=== PATIENT | male | born 1995 | race Caucasian/White ===

== ENCOUNTER 2023-07-08 20:01 | Inpatient (IN) | payer OTHER, SELFPAY ==
[2023-07-08 15:24] VITALS: BP 136/80
--- NOTE | 2023-07-08 15:49 | ED.GENMED ---
History of Present Illness
<Osmany Casanova, DO - Last Filed: 07/09/23 06:00>
General
Chief Complaint: Abdominal Symptoms
Source: patient
Exam Limitations: none
Time Seen by Provider: 07/08/23 15:43
Travel History
Have you had any contact with someone who has COVID-19?: No
Do you have any symptoms of coronavirus? Fever > 100 degrees, chills, cough, shortness of breath, sore throat, loss of taste or smell, muscle aches, or headache?: No
History of Present Illness
History of Present Illness:
See MDM
Past History
<Osmany Casanova, DO - Last Filed: 07/09/23 06:00>
Past History
ED Past Medical History: None
ED Past Surgical History: Other (Intra-abdominal abscess drainage)
Phy Exam
<Osmany Casanova, DO - Last Filed: 07/09/23 06:00>
Physical Exam
Physical Exam:
See MDM
Course
<Osmany Casanova, DO - Last Filed: 07/09/23 06:00>
Orders/Labs/Results
Orders:
Orders
07/08/23 15:48
Iohexol [Omnipaque] See Protocol PO NOW STA
Ketorolac [Toradol] 30 mg IV NOW STA
07/08/23 15:49
CT Abd/pel W Iv And Oral Contr Urgent
Comment: hx RLQ abscess drained 6 weeks ago
Reason For Exam: RLQ pain
07/08/23 16:09
Complete Blood Count/With Diff Urgent
Comprehensive Metabolic Panel Urgent
07/08/23 19:51
Admit/Transfer Patient As Directed
Co-Sign Provider:
Level of Care: Inpatient admission
Assign to:: Medical/Surgical
Physician / Group: john
Diagnosis: abscess
Reason for Hospitalization: abscess
Expected length of stay greater than two midnights?: Yes
ELOS- Estimated Length of Stay in days: 3
I certify the patient meets the requirements for IP care: Yes
07/08/23 19:52
Code Status As Directed
Resuscitation Status: Full Code
07/08/23 21:01
Acetaminophen [Tylenol] 650 mg PO Q4HPRN PRN
07/08/23 21:01
Activity As Directed
Activity Level: As Tolerated
Vital Signs As Directed
Frequency: Per unit guidelines
DX Deep Vein Thrombosis Video Routine
07/09/23 06:00
Basic Metabolic Panel IN AM
Complete Blood Count/No Diff IN AM
Ampicillin/Sulbactam 3 G [Unasyn] 3 gm 0.9% Sodium Chloride 100 ml [Nss] 100 ml IV Q6
07/10/23 06:00
Basic Metabolic Panel IN AM
Complete Blood Count/No Diff IN AM
07/11/23 06:00
Basic Metabolic Panel IN AM
Complete Blood Count/No Diff IN AM
07/12/23 06:00
Basic Metabolic Panel IN AM
Complete Blood Count/No Diff IN AM
07/13/23 06:00
Basic Metabolic Panel IN AM
Complete Blood Count/No Diff IN AM
Abnormal Lab Results
07/08/23
16:09
WBC 17.2 H 10^3/uL
(4.8-10.8)
Hgb 12.0 L g/dL
(13.0-18.0)
Hct 37.5 L %
(39.0-52.0)
MCV 78.8 L fL
(80.0-94.0)
MCH 25.2 L pg
(27.0-31.0)
MCHC 32.0 L g/dL
(33.0-37.0)
Abs Immat Gran (auto) 0.1 H 10^3/uL
(0-0.05)
Absolute Neuts (auto) 15.2 H 10^3/uL
(1.4-6.5)
Absolute Lymphs (auto) 0.8 L 10^3/uL
(1.2-3.4)
Absolute Monos (auto) 1.1 H 10^3/uL
(0.1-0.6)
Neutrophils % 88.1 H %
(42.2-75.2)
Lymphocytes % 4.4 L %
(20.5-51.1)
BUN 8 L mg/dl
(9-20)
Glucose 104 H mg/dl
(70-99)
07/08/23 16:09
07/08/23 16:09
Vital Signs
Initial and Last Documented VS:
Initial Vital Signs
Temp Pulse Resp BP Pulse Ox
98.3 F 108 16 136/80 97
07/08/23 15:24 07/08/23 15:24 07/08/23 15:24 07/08/23 15:24 07/08/23 15:24
Last Documented Vital Signs
Temp Pulse Resp BP Pulse Ox
98.8 F 94 12 119/65 98
07/08/23 23:00 07/08/23 23:00 07/08/23 23:00 07/08/23 23:00 07/08/23 23:00
<Kevin Merino MD - Last Filed: 07/08/23 19:49>
Orders/Labs/Results
Orders:
Orders
07/08/23 15:48
Iohexol [Omnipaque] See Protocol PO NOW STA
Ketorolac [Toradol] 30 mg IV NOW STA
07/08/23 15:49
CT Abd/pel W Iv And Oral Contr Urgent
Comment: hx RLQ abscess drained 6 weeks ago
Reason For Exam: RLQ pain
07/08/23 16:09
Complete Blood Count/With Diff Urgent
Comprehensive Metabolic Panel Urgent
07/08/23 19:51
Admit/Transfer Patient As Directed
Co-Sign Provider:
Level of Care: Inpatient admission
Assign to:: Medical/Surgical
Physician / Group: john
Diagnosis: abscess
Reason for Hospitalization: abscess
Expected length of stay greater than two midnights?: Yes
ELOS- Estimated Length of Stay in days: 3
I certify the patient meets the requirements for IP care: Yes
07/08/23 19:52
Code Status As Directed
Resuscitation Status: Full Code
07/08/23 21:01
Acetaminophen [Tylenol] 650 mg PO Q4HPRN PRN
07/08/23 21:01
Activity As Directed
Activity Level: As Tolerated
Vital Signs As Directed
Frequency: Per unit guidelines
DX Deep Vein Thrombosis Video Routine
07/09/23 06:00
Basic Metabolic Panel IN AM
Complete Blood Count/No Diff IN AM
Ampicillin/Sulbactam 3 G [Unasyn] 3 gm 0.9% Sodium Chloride 100 ml [Nss] 100 ml IV Q6
07/10/23 06:00
Basic Metabolic Panel IN AM
Complete Blood Count/No Diff IN AM
07/11/23 06:00
Basic Metabolic Panel IN AM
Complete Blood Count/No Diff IN AM
07/12/23 06:00
Basic Metabolic Panel IN AM
Complete Blood Count/No Diff IN AM
07/13/23 06:00
Basic Metabolic Panel IN AM
Complete Blood Count/No Diff IN AM
Abnormal Lab Results
07/08/23
16:09
WBC 17.2 H 10^3/uL
(4.8-10.8)
Hgb 12.0 L g/dL
(13.0-18.0)
Hct 37.5 L %
(39.0-52.0)
MCV 78.8 L fL
(80.0-94.0)
MCH 25.2 L pg
(27.0-31.0)
MCHC 32.0 L g/dL
(33.0-37.0)
Abs Immat Gran (auto) 0.1 H 10^3/uL
(0-0.05)
Absolute Neuts (auto) 15.2 H 10^3/uL
(1.4-6.5)
Absolute Lymphs (auto) 0.8 L 10^3/uL
(1.2-3.4)
Absolute Monos (auto) 1.1 H 10^3/uL
(0.1-0.6)
Neutrophils % 88.1 H %
(42.2-75.2)
Lymphocytes % 4.4 L %
(20.5-51.1)
BUN 8 L mg/dl
(9-20)
Glucose 104 H mg/dl
(70-99)
07/08/23 16:09
07/08/23 16:09
Vital Signs
Initial and Last Documented VS:
Initial Vital Signs
Temp Pulse Resp BP Pulse Ox
98.3 F 108 16 136/80 97
07/08/23 15:24 07/08/23 15:24 07/08/23 15:24 07/08/23 15:24 07/08/23 15:24
Last Documented Vital Signs
Temp Pulse Resp BP Pulse Ox
98.8 F 94 12 119/65 98
07/08/23 23:00 07/08/23 23:00 07/08/23 23:00 07/08/23 23:00 07/08/23 23:00
<Osmany Casanova, DO - Last Filed: 07/09/23 06:00>
MDM/Problems Addressed
Differential Diagnosis Includes:
HPI and MDM Narrative:
27-year-old male presenting for evaluation of right lower quadrant pain. Symptoms have persisted over the past week. Patient is worried this is a reoccurrence of an intra-abdominal abscess. He states he had an issue about 6 weeks ago at an
outside hospital that required drainage of an abscess. Patient states he was told the abscess was between his terminal ileum and his appendix they were unsure if this could be an undiagnosed Crohn's issue or possibly appendicitis. The appendix was
not removed because of the large amount of inflammation. Patient has been unable to see a internal combustion engineer expeditiously for colonoscopy
Given his recurrent symptoms and his prior history, will obtain CT to rule out acute appendicitis versus abscess versus perforation
Physical exam
General: Well appearing and non-toxic
HEENT: protecting airway
Neck: appears supple
CV: No evidence of cyanosis
Resp: No accessory muscle use
Abd: Non-distended. Point tenderness to right lower quadrant
Extremities: No deformities
Neuro: alert
Psych: Normal affect
Skin: Intact
Problems Addressed including Acute and Chronic Conditions affecting care:
1. Abdominal pain
Acuity: acute
Prognosis: stable
Details: Will obtain CT to rule out appendicitis versus perforation versus abscess
Differential Diagnosis (but not limited to): Acute appendicitis, intra-abdominal abscess, colitis
Testing considered: Urinalysis
Drug therapy (if applicable): OTC meds, please see d/c instruction regarding Rx drugs
Amount and/or Complexity of Data Reviewed
Clinical info obtained from: Patient
External data reviewed: N/A
Labs I independently reviewed (but not limited to): Leukocytosis
Radiology: The CT scan was personally and independently reviewed. In addition, official CT report reviewed.
Pulse Ox: not hypoxic
EKG independently reviewed: N/A
Highway Painter: N/A
Critical Care: N/A
Risk of Complication:
Social Determinants of health: Good social support
Discussed with other providers: Hospitalist
Escalation of Care includes Admit/Obs: Given the CT findings, will start antibiotics and admit
Occasional wrong word or 'sound a like' substitutions may have occurred due to the inherent limitations of voice recognition software. Read the chart carefully and recognize, using context, where substitutions have occurred.
<Osmany Casanova DO - Last Filed: 07/09/23 06:00>
*Critical Care Note
Total Time (30-74mins, 75-104mins- exclusive of procedures): Not Applicable
<Kevin Merino MD - Last Filed: 07/08/23 19:49>
Update Note
Update Note:
Marked inflammatory changes right lower quadrant. Admit to medicine. Discussed with surgery. Will start antibiotics. Clear liquid diet for now
ED Attending Note
<Osmany Casanova DO - Last Filed: 07/09/23 06:00>
-
Portions of this chart may have been created with voice recognition software.� Occasional wrong word or��sound alike� substitutions may have occurred due to the inherent limitations of voice recognition software.
Discharge Plan
Departure
Patient Disposition: Admit
Date of Disposition: 07/08/23
Time of Disposition: 19:48
Presentation/result/management discussed w/ accepting MD/DO: Hospitalist
Discharge Problem:
Colitis
Interventions
Interventions:
*Risk Screen - Suicide Last Done: 07/08/23 21:00
*General Assessment Last Done: 07/08/23 21:00
*Neglect/Abuse Screening Last Done: 07/08/23 21:00
ED- Fall Risk Assessment Last Done: 07/08/23 21:00
*ED COVID-19 Vaccine History Last Done: 07/08/23 15:24
*Nursing Disposition Last Done: 07/08/23 21:00
AB-Fugczz-Ienfjesknh Assessment Last Done: 07/08/23 16:15
Discharge Date and Time
Discharge Date/Time: 07/08/23 21:00
[2023-07-08] MEDS: TORADOL 30 MG IV (16:04)
[2023-07-08] MEDS: OMNIPAQUE 50 ML PO (16:06)
[2023-07-08 16:18] LABS: % Basophils 0.2 % (0-2); % Eosinophils 0.4 % (0-6); % Immature Granulocytes 0.4 % (0-0.5); % Lymphocytes 4.4 % (20.5-51.1); % Monocytes 6.5 % (1.7-9.3); % Neutrophils 88.1 % (42.2-75.2); Absolute Eosinophils 0.1 10^3/uL (0-0.7); Absolute Immature Granulocytes 0.1 10^3/uL (0-0.05); Absolute Lymphocytes 0.8 10^3/uL (1.2-3.4); Absolute Monocytes 1.1 10^3/uL (0.1-0.6); Absolute Neutrophils 15.2 10^3/uL (1.4-6.5); Hematocrit 37.5 % (39.0-52.0); Mean Corpuscular Hgb 25.2 pg (27.0-31.0); Mean Corpuscular Volume 78.8 fL (80.0-94.0); Mean Platelet Volume 10.3 fL (7.4-10.4); Nucleated Red Blood Cells % 0 % (-); Platelet Count 352 10^3/uL (130-400); Red Blood Cell Count 4.76 10^6/uL (4.70-6.10); Red Cell Dist. Width 13.2 % (11.5-14.5); White Blood Cell Count 17.2 10^3/uL (4.8-10.8)
[2023-07-08 16:30] LABS: ALT (SGPT) 18 U/L (0-50); AST (SGOT) 20 U/L (17-59); Albumin 4.1 g/dl (3.5-5.0); Alkaline Phosphatase 87 U/L (38-126); Blood Urea Nitrogen 8 mg/dl (9-20); Calcium 9.7 mg/dl (8.4-10.2); Carbon Dioxide 26 mmol/L (22-30); Chloride 100 mmol/L (98-107); Glucose 104 mg/dl (70-99); Potassium 4.1 mmol/L (3.5-5.1); Sodium 136 mmol/L (135-145); Total Protein 7.5 g/dl (6.3-8.2); eGFR > 60.00
[2023-07-08 17:51] VITALS: BP 120/67
[2023-07-08 19:40] VITALS: BP 125/64
--- NOTE | 2023-07-08 20:19 | HPS.HSE ---
Family Physician
-
Family Physician: Jamal Pickens,DO
Chief Complaint
-
Abd pain
History of Present Illness
27-year-old man comes in with right lower quadrant pain. Symptoms have persisted over the past week. He is worried this is a reoccurrence of an intra-abdominal abscess. 6 weeks ago at an outside hospital he presented with an abscess that required
drainage. He was told the abscess was between his terminal ileum and his appendix. Providers at that hospital were unsure if this could be an undiagnosed Crohn's issue or possibly appendicitis. The appendix was not removed. Patient has been
unable to see a conference service coordinator since then for colonoscopy. No family history of inflammatory bowel disease. A CT was ordered to rule out acute appendicitis versus abscess versus perforation. CT showed:
Focal marked edematous/inflammatory/infectious stranding in the right lower quadrant with accompanying marked thickening of the wall of the cecum and terminal ileum (appendix otherwise not discretely identified), without accompanying well-formed
abnormal focal fluid collection, intestinal obstruction or free air. Several accompanying subcentimeter right lower quadrant mesenteric lymph nodes.
Medical History
Past Medical History
Past Medical History: Reports None
Past Surgical History: Reports None
Social History
Tobacco: Vaping
Alcohol: None
Drug: None
Employment: Employed
Family History
Family History: Not pertinent
Allergies / Home Medications
Allergies reflects when Allergies were last updated in [employer].
Home Medications with original date entered in [employer]
Allergy/Medication List:
Allergies
Allergy/AdvReac Type Severity Reaction Status Date / Time
No Known Allergies Allergy Verified 07/08/23 19:41
No home meds.
Review of Systems
-
History Source: Patient
A 12 point ROS was completed and negative except as noted: Yes
Constitutional: Reports No Symptoms
Physical Exam
Vital Signs
Vital Signs
Temp Pulse Resp BP Pulse Ox
98.4 F 99 16 125/64 99
07/08/23 19:40 07/08/23 19:40 07/08/23 15:24 07/08/23 19:40 07/08/23 19:40
Physical Exam
General: Well Developed, Well Nourished, No Apparent Distress, Comfortable and Conversant
HEENT: NormoCephalic and Moist mucous membranes
Respiratory: Clear
Cardiac: S1/S2 and Regular Rhythm
GI: Soft and Tender (mildly tender RLQ, ohterwise not tender.)
Musculoskeletal: No Clubbing, No Cyanosis and No Edema
Skin: Warm and Dry; No Rash or Jaundice
Neuro: Awake, Alert, Oriented and AO x 3
Psych: Calm
Laboratory Results
-
07/08/23 16:09
07/08/23 16:09
Laboratory Results
Total Bilirubin 1.0 mg/dl (0.2-1.3) 07/08/23 16:09
AST 20 U/L (17-59) 07/08/23 16:09
ALT 18 U/L (0-50) 07/08/23 16:09
Alkaline Phosphatase 87 U/L (38-126) 07/08/23 16:09
Data Reviewed
-
Lab Data: Labs Reviewed by me
Impression/Plan
-
IMPRESSION:
27 man with inflammation in intestine, possible inflammatory bowel disease. WBC 17.2
PLAN:
1. Inflamed thickening of the wall of the cecum and terminal ileum. ER Discussed case with surgery. No indication for surgery tonight.
Clear liquids
IV antibiotics
GI consult to discuss next steps
Full code
VCD for DVTp
[2023-07-08 21:05] VITALS: BP 130/65; BMI 28.0
[2023-07-08] MEDS: UNASYN IV (21:55)
[2023-07-08 23:00] VITALS: BP 119/65
[2023-07-09] MEDS: UNASYN IV ×4 (05:56→23:47)
[2023-07-09 06:55] LABS: Hematocrit 35.5 % (39.0-52.0); Hemoglobin 11.6 g/dL (13.0-18.0); Mean Corp Hgb Conc. 32.7 g/dL (33.0-37.0); Mean Corpuscular Hgb 25.3 pg (27.0-31.0); Mean Corpuscular Volume 77.5 fL (80.0-94.0); Mean Platelet Volume 10.3 fL (7.4-10.4); Platelet Count 330 10^3/uL (130-400); Red Blood Cell Count 4.58 10^6/uL (4.70-6.10); Red Cell Dist. Width 13.5 % (11.5-14.5); White Blood Cell Count 11.7 10^3/uL (4.8-10.8)
[2023-07-09 07:00] VITALS: BP 115/63
[2023-07-09 07:16] LABS: Blood Urea Nitrogen 8 mg/dl (9-20); Calcium 9.6 mg/dl (8.4-10.2); Carbon Dioxide 25 mmol/L (22-30); Chloride 100 mmol/L (98-107); Estimated Creatinine Clearance 111 ml/min; Glucose 84 mg/dl (70-99); Potassium 4.4 mmol/L (3.5-5.1); Sodium 137 mmol/L (135-145); eGFR > 60.00
--- NOTE | 2023-07-09 09:07 | W.PN.HOSP.TC ---
Today's Communication/Plan
-
Colorectal surgery consult
Assessment / Plan
Assessment / Plan
Gen-AAOx3, NAD
HEENT-NC, AT, anicteric, clear oral mm
Neck-supple
CV-reg, no M, +S1/S2
Lungs-clear B/L
Abd-soft, nondistended, mild right lower quadrant tenderness
Ext-no edema
Musculoskeletal-no cyanosis, clubbing
Skin-warm and dry
Neuro-grossly non-focal
Psych-calm, cooperative
Sepsis due to right lower quadrant abscess -rule out perforation. CT abdomen and pelvis noted. Continue IV antibiotics. Consult colorectal surgery.
Recently admitted to [facility] 6 weeks ago (May 2023) for treatment of this abscess. Transiently had a drain in place but was not discharged with a drain. Completed 10 days of Augmentin after discharge. Pain in the right lower
quadrant recurred about a week ago. Has never had a colonoscopy. No family history of bowel disease.
He estimates he is lost about 15 pounds since May.
Afebrile here, leukocytosis improving.
Full code
Anticipated Discharge: > 48 hours
Subjective/Interval History
-
Date of Service: July 09, 2023
Patient seen and examined. Less pain today. No complaints.
Objective Data
-
Labs:
Laboratory Results
07/09/23
05:31
WBC 11.7 H
Hgb 11.6 L
Hct 35.5 L
Plt Count 330
Sodium 137
Potassium 4.4
Chloride 100
Carbon Dioxide 25
BUN 8 L
Creatinine 1.0
Glucose 84
Calcium 9.6
Vital Signs:
Vital Signs
Temp Pulse Resp BP Pulse Ox
97.6 F 94 18 115/63 97
07/09/23 07:00 07/09/23 07:00 07/09/23 07:00 07/09/23 07:00 07/09/23 07:00
I&O
07/08/23 07/09/23 07/10/23
06:59 06:59 06:59
Intake Total 360 / 360
Balance 360 / 360
Review of Systems
-
History Source: Patient
All other systems: Reviewed and negative
[2023-07-09 12:39] LABS: Reticulocyte Count 1.2 % (0.4-2.8)
[2023-07-09 12:58] LABS: Iron < 20 ug/dl (49-181)
[2023-07-09 13:05] LABS: Total Iron Binding Capacity 239 ug/dl (261-462)
--- NOTE | 2023-07-09 13:28 | CON.CRS ---
Consultation
-
Date/Time Consultation Requested: 07/09/2023. 8:05am
Date/Time Consultation Performed: 07/09/2023, 11:30
Requesting Provider: Agustín Perez MD
Performing Provider: Jonathan Connor MD
Reason for Consultation: inflammation/thickening of cecum and TI
Medical History
-
Chief Complaint: abdominal pain
History of Present Illness:
27-year-old male with a past medical history of vaping presents to the emergency department due to abdominal pain. The patient was at [facility] about 6 weeks ago with severe abdominal pain. CT abdomen and pelvis showed that he had an abscess
near his cecum. A drain was in place for 2 days and subsequently removed due to low output. At the time he was told this could be either his appendix or Crohn's disease. He was seen in consult by general surgeon who told him there was no need for
an immediate operation. The plan was for him to follow-up in the office with GI and get a colonoscopy. If it was Crohn's disease then he would be treated by GI but if it was negative then the general surgeon would perform an appendectomy. He was
discharged from [facility] on Augmentin.
The patient states that his pain came back about 1 week ago. It then elevated throughout the week. It got to the point where last night he felt like it was as painful as when he had intial symptoms six weeks ago. Currently he denies nausea or
vomiting. He has some diarrhea. He is urinating without difficulty. His pain has improved since antibiotics have started. His white count on admission was 17.2 and down to 11.7 today. He was started on IV Unasyn in the ER. CT of the abdomen
and pelvis shows focal marked edematous/inflammatory/infectious stranding in the right lower quadrant with accompanying marked thickening of the wall of the cecum and terminal ileum (appendix otherwise not discretely identified), without
accompanying well-formed abnormal focal fluid collection, intestinal obstruction or free air. Several accompanying subcentimeter right lower quadrant mesenteric lymph nodes. He has never had a colonoscopy. He denies a family history of colorectal
cancer or inflammatory bowel disease. We have been consulted for further surgical input.
Past Medical History
Past Medical History: None
Past Surgical History: None
Social History
Tobacco: Vaping
Alcohol: Occasional
Drug: None
Family History
Family History: Reviewed & Not Pertinent
Allergies / Home Medications
Allergy/AdvReac Type Severity Reaction Status Date / Time
No Known Allergies Allergy Verified 07/08/23 19:41
�Medication �Instructions �Recorded �Confirmed �Type
Probiotic Supplement 07/08/23 History
Review of Systems
-
History Source: Patient
Abdomen/GI: Abdominal Pain
A 10 point review of systems was completed, and was negative except as per HPI.
Physical Exam
Vital Signs
Temp 97.6 F 07/09/23 07:00
Pulse 94 07/09/23 07:00
Resp Rate 18 07/09/23 07:00
Blood pressure 115/63 07/09/23 07:00
SaO2 97 07/09/23 07:00
07/08/23 07/09/23 07/10/23
06:59 06:59 06:59
Actual Weight 85.82 kg
Body Mass Index (BMI) 28.0
Lab Results / Allergies
07/09/23 05:31
07/09/23 05:31
WBC 11.7 10^3/uL (4.8-10.8) H 07/09/23 05:31
Hgb 11.6 g/dL (13.0-18.0) L 07/09/23 05:31
Hct 35.5 % (39.0-52.0) L 07/09/23 05:31
Plt Count 330 10^3/uL (130-400) 07/09/23 05:31
Abs Immat Gran (auto) 0.1 10^3/uL (0-0.05) H 07/08/23 16:09
Neutrophils % 88.1 % (42.2-75.2) H 07/08/23 16:09
Allergy/AdvReac Type Severity Reaction Status Date / Time
No Known Allergies Allergy Verified 07/08/23 19:41
Physical Exam
General: Well Developed, Well Nourished and No Apparent Distress
GI: Soft, Non Distended and Tender (RLQ- mild)
Skin: Warm and Dry
Neuro: AO x 3
Psych: Calm
Assessment / Plan
-
Assessment: 27-year-old male with a past medical history of vaping and recent admission at [facility] 6 weeks ago for an abscess near his cecum status post drain, presents to [facility] with worsening abdominal pain and found to have
edematous/inflammatory/infectious stranding in the right lower quadrant with accompanying marked thickening of the wall of the cecal and terminal ileum. Crohns (more likely) vs appendicitis.
WBC 11.7. Vitals normal.
Plan:
No plans for emergent surgery at this time. May require surgical intervention in the future. Recommend continuing IV Unasyn. Continue clear liquid diet and will add Ensure. Recommend GI consult given ? Crohn's.
[2023-07-09 14:42] LABS: Folate 4.8 ng/ml (2.76-20)
[2023-07-09 15:00] VITALS: BP 115/76
[2023-07-09] MEDS: LOVENOX 40 MG SC (18:47)
[2023-07-09] MEDS: TORADOL 15 MG IV (18:54)
[2023-07-09 23:00] VITALS: BP 110/63
[2023-07-09] MEDS: FLUSH (NSS) 2 FLUSH IV (23:48)
[2023-07-09] MEDS: TYLENOL 1000 MG PO (23:52)
[2023-07-10 05:42] LABS: Hemoglobin 11.1 g/dL (13.0-18.0); Mean Corp Hgb Conc. 32.6 g/dL (33.0-37.0); Mean Corpuscular Hgb 25.2 pg (27.0-31.0); Mean Corpuscular Volume 77.1 fL (80.0-94.0); Mean Platelet Volume 10.2 fL (7.4-10.4); Platelet Count 307 10^3/uL (130-400); Red Blood Cell Count 4.41 10^6/uL (4.70-6.10); Red Cell Dist. Width 13.2 % (11.5-14.5); White Blood Cell Count 11.5 10^3/uL (4.8-10.8)
[2023-07-10] MEDS: UNASYN IV ×4 (05:55→23:19)
[2023-07-10] MEDS: TYLENOL 1000 MG PO (05:55)
[2023-07-10] MEDS: FLUSH (NSS) 2 FLUSH IV (05:56)
[2023-07-10 06:28] LABS: Blood Urea Nitrogen 5 mg/dl (9-20); Calcium 9.7 mg/dl (8.4-10.2); Carbon Dioxide 28 mmol/L (22-30); Chloride 101 mmol/L (98-107); Estimated Creatinine Clearance > 125 ml/min; Glucose 98 mg/dl (70-99); Potassium 4.3 mmol/L (3.5-5.1); Sodium 140 mmol/L (135-145); eGFR > 60.00
[2023-07-10 07:00] VITALS: BP 113/68
[2023-07-10 08:12] LABS: Prealbumin (Transthyretin) 8.4 mg/dl (17.6-36.0)
--- NOTE | 2023-07-10 09:46 | CON.GI ---
Addendum entered and electronically signed by Bee Kunz MD 07/10/23 15:35:
I saw and examined the patient.
The IT RISK AND ASSURANCE SENIOR MANAGER's note was reviewed and I agree with the note.
Comment: This is a very pleasant 27-year-old male who had a history of abscess in the right lower quadrant 6 weeks ago and had a drain placed for 2 days at [facility] and subsequently was removed and discharged on Augmentin for 10 days saw GI .
[place]. He says that he felt better but about a week ago he started having recurrent right lower quadrant pain. No fevers or chills. He presented to [facility] 07/07 and was noted to have leukocytosis, afebrile and has been started on
antibiotics, no fluid collection or drainable abscess was noted on repeat CT. Has been evaluated by colorectal surgery. His pain has improved and he is tolerating clear liquids and was advanced today to full liquids. No family history of IBD. He
does have elevated CRP and leukocytosis improving on antibiotics and repeat CT shows thickening in the cecum and TI
Assessment and plan recurrent right lower quadrant pain with thickening in the cecum and TI and prior history of right lower quadrant abscess status post drain about 6 weeks ago improved with antibiotics. Continue antibiotics. Most likely etiology
could be Crohn's ileocolitis versus less likely chronic appendicitis/infectious etiology. Will repeat a CT enterography in 2 to 3 weeks and if no obvious fluid collection noted will schedule him for colonoscopy in 4 weeks to rule out Crohn's
disease and if that is unremarkable then will need appendectomy/cecectomy. Will also get IBD serologies.
Original Note:
Consultation
-
Date/Time Consultation Requested: 07/09/23 1400
Date/Time Consultation Performed: 07/10/23 0940
Requesting Provider: Agustín Perez DO
Performing Provider: ROMÁN Michael, Bee Kunz MD
Reason for Consultation: abdominal pain
Medical History
Chief Complaint / HPI
Chief Complaint: abdominal pain
History of Present Illness:
Pt is a 27yo with hx abdominal pain in 2012 with MD follow up but pain resolved and pt did not recall and GI testing. He then began with abdominal pain beginning prior to [place]. After 3 weeks he was seen at [place] with concern for abdominal
abscess treated 6 weeks ago at [facility] requiring drainage. CT at that time with wall thickening with luminal narrowing with concern for luminal narrowing involving terminal ileum, IC valve, cecum, proximal ascending colon. small
phlegmon with communication with inflamed TI. CT favored inflammation at TI and less likely appendix. He was given course of Augmentin with plan for GI follow up with Dr. Almaguer 07/17. He then developed worsening pain with 15 lbs wt loss since last
admission. On admission he was noted with WBC 17,200 hbg 12, CRP 161.6. fecal kajal pending to be sent. CT A/p with IV and oral with Focal marked edematous/inflammatory/infectious stranding in the right lower quadrant with accompanying marked
thickening of the wall of the cecum and terminal ileum (appendix otherwise not discretely identified), without accompanying well-formed abnormal focal fluid collection, intestinal obstruction or free air. Several accompanying subcentimeter right
lower quadrant mesenteric lymph nodes. He has been seen by colorectal surgery and recommended colonoscopy when inflammatory process improves.
At this time patient feeling better than on admission pain now 1/10. He admits to wt loss over last few weeks. He has GERD x 1 but not chronic issues. He denies dysphagia, nausea, vomiting, with rare hemorrhoidal bleeding. He denies any
chronic bowel irregularities, bloating, or rectal bleeding. He did have some diarrhea after Augmentin use now with some improvement. No hx EGD or colonoscopy that he could recall. No joint pain, rashes or visual problems.
Past Medical History
Past Medical History: None
Past Surgical History: None
Social History
Tobacco: Vaping (occasional )
Alcohol: None
Drug: None
Living: Other ([facility] )
Employment: Employed
Family History
Family History: Other (no family hx UC or crohns, no family hx colon CA or polyps)
Allergies / Home Medications
Allergy/AdvReac Type Severity Reaction Status Date / Time
No Known Allergies Allergy Verified 07/08/23 19:41
�Medication �Instructions �Recorded
Probiotic Supplement 07/08/23
Review of Systems
-
History Source: Patient
Constitutional: Reports Weight Loss
EENT: Reports No Symptoms
Respiratory: Reports No Symptoms
Cardiac: Reports No Symptoms
Abdomen/GI: Reports Abdominal Pain and Diarrhea (with abx use)
Musculoskeletal: Reports No Symptoms
Skin: Reports No Symptoms
Neurological: Reports Weakness
Endocrine: Reports No Symptoms
Hematologic/Lymphatic: Reports No Symptoms
Vital Signs
Temp Pulse Resp BP Pulse Ox
98.7 F 75 16 113/68 98
07/10/23 07:00 07/10/23 07:00 07/10/23 07:00 07/10/23 07:00 07/10/23 07:00
Physical Exam
Exam
General: Well Developed, Well Nourished and No Apparent Distress
HEENT: Normocephalic
Respiratory: Clear
Cardiac: Regular Rhythm
GI: Soft, Non Distended and Tender (mild Right lower/right mid quad pain )
Musculoskeletal: No Clubbing and No Cyanosis
Skin: Warm and Dry
Neuro: Awake, Alert and AO x 3
Psych: Calm
Results
WBC 11.5 10^3/uL (4.8-10.8) H 07/10/23 05:12
Hgb 11.1 g/dL (13.0-18.0) L 07/10/23 05:12
Hct 34.0 % (39.0-52.0) L 07/10/23 05:12
MCV 77.1 fL (80.0-94.0) L 07/10/23 05:12
Plt Count 307 10^3/uL (130-400) 07/10/23 05:12
Absolute Neuts (auto) 15.2 10^3/uL (1.4-6.5) H 07/08/23 16:09
Sodium 140 mmol/L (135-145) 07/10/23 05:12
Potassium 4.3 mmol/L (3.5-5.1) 07/10/23 05:12
Chloride 101 mmol/L (98-107) 07/10/23 05:12
Carbon Dioxide 28 mmol/L (22-30) 07/10/23 05:12
BUN 5 mg/dl (9-20) L 07/10/23 05:12
Creatinine 0.8 mg/dL (0.7-1.3) 07/10/23 05:12
Calcium 9.7 mg/dl (8.4-10.2) 07/10/23 05:12
Total Bilirubin 1.0 mg/dl (0.2-1.3) 07/08/23 16:09
AST 20 U/L (17-59) 07/08/23 16:09
ALT 18 U/L (0-50) 07/08/23 16:09
Alkaline Phosphatase 87 U/L (38-126) 07/08/23 16:09
Diagnostic Image Results:
05/27/23 CT A/p [place]- circumferential wall thickening mucosal hyperenhancement and luminal narrowing involving terminal ileum, IC valve, cecum, proximal ascending colon. Stents of inflammatory fat stranding with extensive surrounding
inflammatory fat standing. small phlegmon developing abscess right lower quadrant adjacent to and likley communicating with inflammed TI 3.9 x 3.5x 4.6 cm. appendicitis cannot not be entirely excluded epicenter away from inflammatory changes
remote from appendix and favor enterocolitis/terminal ileitis. Correlate for IBD.
07/08/23 CT A/P IV and oral:
Focal marked edematous/inflammatory/infectious stranding in the right lower quadrant with accompanying marked thickening of the wall of the cecum and terminal ileum (appendix otherwise not discretely identified), without accompanying well-formed
abnormal focal fluid collection, intestinal obstruction or free air. Several accompanying subcentimeter right lower quadrant mesenteric lymph nodes.
Prior GI Procedures:
EGD: none
Colonoscopy: none
Assessment / Plan
-
Pt is a 27yo with hx abdominal pain in 2012 with MD follow up but pain resolved and pt did not recall and GI testing. He then began with abdominal pain beginning prior to . After 3 weeks he was seen at [place] with concern for abdominal
abscess treated 6 weeks ago at [facility] requiring drainage. CT at that time with wall thickening with luminal narrowing with concern for luminal narrowing involving terminal ileum, IC valve, cecum, proximal ascending colon. small
phlegmon with communication with inflamed TI. CT favored inflammation at TI and less likely appendix. He was given course of Augmentin with plan for GI follow up with Dr. Almaguer 07/17. He then developed worsening pain with 15 lbs wt loss since last
admission. On admission he was noted with WBC 17,200 hbg 12, CRP 161.6. fecal kajal pending to be sent. CT A/p with IV and oral with Focal marked edematous/inflammatory/infectious stranding in the right lower quadrant with accompanying marked
thickening of the wall of the cecum and terminal ileum (appendix otherwise not discretely identified), without accompanying well-formed abnormal focal fluid collection, intestinal obstruction or free air. Several accompanying subcentimeter right
lower quadrant mesenteric lymph nodes. He has been seen by colorectal surgery and recommended colonoscopy when inflammatory process improves.
-right lower quadrant abscess with wall thickening and luminal narrowing with concern for underlying IBD vs less likely appendix related
-recent 10 days course of abx and drainage of abscess at [place] in May
-leukocytosis
-microcytic anemia
-wt loss
PLAN:
concern for underling crohns of TI with inflammation and abscess vs less likely appendix related
appreciate colorectal input consider colonoscopy in 4- 6week then elective resection
cont abx
pt is scheduled follow up with Dr. Almaguer 07/17
Will review imaging with Dr. Kunz and follow up plan for colonoscopy
WBC's trending down
cont Lovenox as if active IBD higher risk for DVT
cont clear diet
if underlying IBD will need eventual treatment when abscess improved and biopsy confirms
-
-
Thank you for consultation and allowing me to participate in the patient's care. Please call the health information technologist GI physician during the after hours with any questions or concerns.
--- NOTE | 2023-07-10 12:02 | W.PN.CRS1 ---
Today's Communication / Plan
-
advance diet
continue antibiotics
no plans for surgery at this time
Assessment/Plan
-
Assessment: 27-year-old male with a past medical history of vaping and recent admission at [facility] 6 weeks ago for an abscess near his cecum status post drain, presents to [facility] with worsening abdominal pain and found to have
edematous/inflammatory/infectious stranding in the right lower quadrant with accompanying marked thickening of the wall of the cecal and terminal ileum. Crohns (more likely) vs appendicitis.
WBC 11.5. vitals normal.
Plan:
1. There is no plan for surgery at this time.
2. Continue IV antibiotics�Unasyn.
3. Advance diet to full liquid and then advance as tolerated.
4. CRP = 182.30, fecal calprotectin = pending.
5. Will need an eventual preoperative colonoscopy by Dr. Connor in a few weeks.
6. OOB as tolerated.
7. Lovenox for DVT prophylaxis.
Subjective Data
Subjective Data
Date of Service: July 10, 2023
Patient states he is having bowel movements with no blood. He denies nausea or vomiting. He had some pain last night in his right lower quadrant which is now resolved. He tolerated clears without difficulty.
Objective Data
-
Vital Signs
Temp Pulse Resp BP Pulse Ox
98.7 F 75 16 113/68 98
07/10/23 07:00 07/10/23 07:00 07/10/23 07:00 07/10/23 07:00 07/10/23 07:00
Intake & Output
07/09/23 07/10/23 07/11/23
06:59 06:59 06:59
Intake Total 360 / 360 1919 / 0
Balance 360 / 360 1919 / 192
Intake:
Oral fluids 360 / 360 1680 / 1680
IV piggybacks 240 / 240
Other:
Number of approximated MODERATE 1 1
amounts of urine
Number of approximated LARGE 1
amounts of urine
Lab Results
07/10/23 05:12
07/10/23 05:12
Physical Exam
-
General: No Acute Distress and AOx3
Abdomen: Soft, Non Distended and Tender (Mild right lower quadrant)
Skin: Warm and Dry
[2023-07-10] MEDS: PROTONIX 20 MG PO (12:36)
--- NOTE | 2023-07-10 13:13 | W.PN.HOSP.TC ---
Today's Communication/Plan
-
Continue antibiotics
Advance diet
Assessment / Plan
Assessment / Plan
Gen-AAOx3, NAD
HEENT-NC, AT, anicteric, clear oral mm
Neck-supple
CV-reg, no M, +S1/S2
Lungs-clear B/L
Abd-soft, nondistended, mild right lower quadrant tenderness
Ext-no edema
Musculoskeletal-no cyanosis, clubbing
Skin-warm and dry
Neuro-grossly non-focal
Psych-calm, cooperative
Sepsis due to right lower quadrant abscess -rule out perforation. CT abdomen and pelvis noted. Continue IV antibiotics. Colorectal surgery and GI following.
Recently admitted to [facility] 6 weeks ago (May 2023) for treatment of this abscess. Transiently had a drain in place but was not discharged with a drain. Completed 10 days of Augmentin after discharge. Pain in the right lower
quadrant recurred about a week ago. Has never had a colonoscopy. No family history of bowel disease.
He estimates he is lost about 15 pounds since May.
Afebrile here, leukocytosis improving.
Diet advanced to full liquids.
Full code
Anticipated Discharge: Within 24 hours
Subjective/Interval History
-
Date of Service: July 10, 2023
Patient seen and examined. Feeling better overall. Minimal abdominal pain.
Objective Data
-
Labs:
Laboratory Results
07/10/23
05:12
WBC 11.5 H
Hgb 11.1 L
Hct 34.0 L
Plt Count 307
Sodium 140
Potassium 4.3
Chloride 101
Carbon Dioxide 28
BUN 5 L
Creatinine 0.8
Glucose 98
Calcium 9.7
Vital Signs:
Vital Signs
Temp Pulse Resp BP Pulse Ox
98.7 F 75 16 113/68 98
07/10/23 07:00 07/10/23 07:00 07/10/23 07:00 07/10/23 07:00 07/10/23 07:00
I&O
07/09/23 07/10/23 07/11/23
06:59 06:59 06:59
Intake Total 360 / 360 1919
Balance 360 / 360 1919
Review of Systems
-
History Source: Patient
All other systems: Reviewed and negative
--- NOTE | 2023-07-10 14:59 | CM ---
Alert awake oriented patient who lives with his fiignacio Ridley who lives in a 2 story home with 0 step to enter and 12 steps to bed and bathroom. He is independent in driving and in all activities of daily living.He was offered VN he declined need.
DHVN hx / No SNF history
Pharmacy [facility]
PCP DR Pickens
PLAN Home Declined VN
[2023-07-10 15:00] VITALS: BP 106/68
[2023-07-10] MEDS: LOVENOX 40 MG SC (17:12)
[2023-07-10] MEDS: TORADOL 15 MG IV ×2 (17:12→23:19)
[2023-07-10 23:28] VITALS: BP 103/65
[2023-07-11] MEDS: UNASYN IV ×2 (05:20→11:13)
[2023-07-11 05:42] LABS: Hematocrit 35.7 % (39.0-52.0); Hemoglobin 11.4 g/dL (13.0-18.0); Mean Corp Hgb Conc. 31.9 g/dL (33.0-37.0); Mean Corpuscular Hgb 25.3 pg (27.0-31.0); Mean Corpuscular Volume 79.3 fL (80.0-94.0); Mean Platelet Volume 10.2 fL (7.4-10.4); Platelet Count 307 10^3/uL (130-400); Red Cell Dist. Width 13.2 % (11.5-14.5); White Blood Cell Count 8.5 10^3/uL (4.8-10.8)
[2023-07-11 06:04] LABS: Blood Urea Nitrogen 4 mg/dl (9-20); Calcium 9.7 mg/dl (8.4-10.2); Carbon Dioxide 26 mmol/L (22-30); Chloride 103 mmol/L (98-107); Estimated Creatinine Clearance > 125 ml/min; Glucose 107 mg/dl (70-99); Potassium 4.1 mmol/L (3.5-5.1); Sodium 140 mmol/L (135-145); eGFR > 60.00
[2023-07-11 07:30] VITALS: BP 126/67
[2023-07-11] MEDS: PROTONIX 20 MG PO (07:43)
--- NOTE | 2023-07-11 07:56 | W.PN.GI.CBS2 ---
Today's Communication / Plan
-
added probiotics
ok to DC home today
Assessment / Plan
-
Pt is a 27yo with hx abdominal pain in 2012 with MD follow up but pain resolved and pt did not recall and GI testing. He then began with abdominal pain beginning prior to [place]. After 3 weeks he was seen at [place] with concern for abdominal
abscess treated 6 weeks ago at [facility] requiring drainage. CT at that time with wall thickening with luminal narrowing with concern for luminal narrowing involving terminal ileum, IC valve, cecum, proximal ascending colon. small
phlegmon with communication with inflamed TI. CT favored inflammation at TI and less likely appendix. He was given course of Augmentin with plan for GI follow up with Dr. Almaguer 07/17. He then developed worsening pain with 15 lbs wt loss since last
admission. On admission he was noted with WBC 17,200 hbg 12, CRP 161.6. fecal kajal pending to be sent. CT A/p with IV and oral with Focal marked edematous/inflammatory/infectious stranding in the right lower quadrant with accompanying marked
thickening of the wall of the cecum and terminal ileum (appendix otherwise not discretely identified), without accompanying well-formed abnormal focal fluid collection, intestinal obstruction or free air. Several accompanying subcentimeter right
lower quadrant mesenteric lymph nodes. He has been seen by colorectal surgery and recommended colonoscopy when inflammatory process improves.
-right lower quadrant abscess with wall thickening and luminal narrowing with concern for underlying IBD vs less likely appendix related
-recent 10 days course of abx and drainage of abscess at [place] in May
-leukocytosis
-microcytic anemia
-wt loss
PLAN:
recurrent right lower quadrant pain with thickening in the cecum and TI and prior history of right lower quadrant abscess status post drain about 6 weeks ago improved with antibiotics.
Continue antibiotics, ok to convert to PO Augmentin X 10 days and then start Flagyl 250 mg tid X 10 days
Most likely etiology could be Crohn's ileocolitis versus less likely chronic appendicitis/infectious etiology.
Will repeat a CT enterography in 2 to 3 weeks (gave slip) and if no obvious fluid collection noted will schedule him for colonoscopy in 4 weeks to rule out Crohn's disease and if that is unremarkable then will need appendectomy/cecectomy.
Will also get IBD serologies.
Ok to DC later today.
Subjective
Subjective
Date of Service: July 11, 2023
He had mild right lower quadrant pain abdominal pain last night but was able to tolerate diet, no fever, no nausea or vomiting, he did have a bowel movement no diarrrhea, no blood in the stool
Objective
Data Reviewed
Laboratory Data:
Laboratory Results
07/11/23 05:14
07/11/23 05:14
Laboratory Results
Total Bilirubin 1.0 mg/dl (0.2-1.3) 07/08/23 16:09
AST 20 U/L (17-59) 07/08/23 16:09
ALT 18 U/L (0-50) 07/08/23 16:09
Alkaline Phosphatase 87 U/L (38-126) 07/08/23 16:09
Vital Signs and I&O:
Vital Signs
Temp Pulse Resp BP Pulse Ox
98.2 F 73 16 103/65 97
07/10/23 23:28 07/10/23 23:28 07/10/23 23:28 07/10/23 23:28 07/10/23 23:28
I&O
07/10/23 07/11/23 07/12/23
06:59 06:59 06:59
Intake Total 1919 1440 / 1440
Balance 1919 1440 / 144
Physical Exam
Physical Exam
Cardiology: Normal Sinus Rhythm
Pulmonary: Clear
GI: Soft, Non Distended, Tender (mild RLQ tenderness) and Normal Bowel Sounds
[2023-07-11] MEDS: VISBIOME 2 CAP PO (08:21)
--- NOTE | 2023-07-11 08:24 | W.PN.CRS1 ---
Today's Communication / Plan
-
okay for d/c
follow up with Dr. Connor in 2 weeks
finish course of antibiotics
Assessment/Plan
-
Assessment: 27-year-old male with a past medical history of vaping and recent admission at [facility] 6 weeks ago for an abscess near his cecum status post drain, presents to [facility] with worsening abdominal pain and found to have
edematous/inflammatory/infectious stranding in the right lower quadrant with accompanying marked thickening of the wall of the cecal and terminal ileum. Crohns (more likely) vs appendicitis.
WBC 11.5. vitals normal.
Plan:
1. There is no plan for surgery at this time.
2. Continue IV antibiotics to po.
3. Tolerating low residue.
4. CRP = 182.30, fecal calprotectin = pending.
5. IBD markers sent by GI.
6. OOB as tolerated.
7. Lovenox for DVT prophylaxis.
8. CT enterography ordered by GI for 2 weeks.
9. ?Iron infusions. Will discuss with hospitalist.
10. Okay for discharge from our perspective. Follow up with Dr. Connor in 2 weeks to discuss surgical planning. Discussed with patient who is in agreement.
Subjective Data
Subjective Data
Date of Service: July 11, 2023
Patient states he had some pain last night which resolved. Overall he has improved. He has no nausea or vomiting. He has flatus. He has no complaints.
Objective Data
-
Vital Signs
Temp Pulse Resp BP Pulse Ox
97.8 F 85 18 126/67 98
07/11/23 07:30 07/11/23 07:30 07/11/23 07:30 07/11/23 07:30 07/11/23 07:30
Intake & Output
07/10/23 07/11/23 07/12/23
06:59 06:59 06:59
Intake Total 1919 1440 / 1440
Balance 1919 1440 / 1440
Intake:
Oral fluids 1680 / 1680 1200 / 1200
IV fluids (Total) 240 / 240
IV piggybacks 240 / 240
Other:
Number of approximated MODERATE 1 2
amounts of urine
Lab Results
07/11/23 05:14
07/11/23 05:14
Physical Exam
-
General: No Acute Distress and AOx3
Abdomen: Soft, Non Distended and Non Tender
Skin: Warm and Dry
--- NOTE | 2023-07-11 10:16 | W.PN.HOSP.TC ---
Today's Communication/Plan
-
discharge
Assessment / Plan
Assessment / Plan
Gen-AAOx3, NAD
HEENT-NC, AT, anicteric, clear oral mm
Neck-supple
CV-reg, no M, +S1/S2
Lungs-clear B/L
Abd-soft, nondistended, mild right lower quadrant tenderness
Ext-no edema
Musculoskeletal-no cyanosis, clubbing
Skin-warm and dry
Neuro-grossly non-focal
Psych-calm, cooperative
Sepsis due to right lower quadrant abscess -rule out perforation. CT abdomen and pelvis noted. Continue IV antibiotics. Colorectal surgery and GI following.
Recently admitted to [facility] 6 weeks ago (May 2023) for treatment of this abscess. Transiently had a drain in place but was not discharged with a drain. Completed 10 days of Augmentin after discharge. Pain in the right lower
quadrant recurred about a week ago. Has never had a colonoscopy. No family history of bowel disease.
He estimates he is lost about 15 pounds since May.
Afebrile here, leukocytosis improving.
Tolerating low residue diet.
Full code
Dispo -medically stable for discharge. Follow-up with GI general surgery, PCP. Discharge on antibiotics per GI recommendation.
32-minute spent in discharge process.
Anticipated Discharge: Today
Subjective/Interval History
-
Date of Service: July 11, 2023
Patient seen and examined. Feeling better. No pain currently. Tolerating diet.
Objective Data
-
Labs:
Laboratory Results
07/11/23
05:14
WBC 8.5
Hgb 11.4 L
Hct 35.7 L
Plt Count 307
Sodium 140
Potassium 4.1
Chloride 103
Carbon Dioxide 26
BUN 4 L
Creatinine 0.7
Glucose 107 H
Calcium 9.7
Vital Signs:
Vital Signs
Temp Pulse Resp BP Pulse Ox
97.8 F 85 18 126/67 98
07/11/23 07:30 07/11/23 07:30 07/11/23 07:30 07/11/23 07:30 07/11/23 07:30
I&O
07/10/23 07/11/23 07/12/23
06:59 06:59 06:59
Intake Total 1919 1440 / 1440
Balance 1919 1440 / 1440
Review of Systems
-
History Source: Patient
All other systems: Reviewed and negative
--- NOTE | 2023-07-11 10:20 | W.DS.TRANS ---
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
-
Discharge Instructions:
Discharge Diagnosis/Procedures Abdominal abscess, sepsis, anemia
Diet Low Residue
Activity As tolerated
Driving Restrictions As prior to admission
Bathing Restrictions None
Instructions:
Stand-Alone Forms:
Changes to Home Medications: No
Discharge Medications:
DC Medications w/original date entered in [facility]
Probiotic Supplement 07/08/23
amoxicillin 875 mg-potassium clavulanate 125 mg tablet 1 tab PO BID #20 tabs 07/11/23
metronidazole 250 mg tablet 250 mg PO TID #30 tabs 07/11/23
Home Medication Changes
Pending Results: No
--- NOTE | 2023-07-11 10:43 | CM ---
MD entered order for discharge.
MD changed to oral antibiotics for dc.
Family drove him home.
Declined VN need.
PLAN Home no needs
[2023-07-11 11:45] VITALS: BP 117/72
[2023-07-11 14:30] LABS: Calprotectin, Fecal 1090 ug/g (<=49)
== END 2023-07-11 11:52 | disposition home or self-care (01) | DRG 871 ==
LOC: 3 WEST ACU 20:01
PROVIDERS: Registered Nurse; ADMITTING PHYSICIAN Internal Medicine; ATTENDING PHYSICIAN Hospitalist; CONSULT PHYSICIAN Surgery; EMERGENCY PHYSICIAN Student in an Organized Health Care Education/Training Program; FAMILY PHYSICIAN Anesthesiology; OTHER PHYSICIAN Internal Medicine Gastroenterology
DX: A41.9 Sepsis, unspecified organism (principal); K65.1 Peritoneal abscess; K50.00 Crohn's disease of small intestine without complications
CPT/HCPCS: 74177; 80048; 80053; 82728; 82746; 83540; 83550; 83993; 84134; 85025; 85027; 85045; 86140; 96374; 99285; 99406; Q9967

== ENCOUNTER → 2023-08-21 06:32 | Day surgery (SDC) | payer OTHER, SELFPAY | LOC: GI 06:32 | PROVIDERS: ATTENDING PHYSICIAN Internal Medicine Gastroenterology | DX: R10.31 Right lower quadrant pain (principal); R93.3 Abnormal findings on diagnostic imaging of other parts of digestive tract; R19.4 Change in bowel habit; K60.2 Anal fissure, unspecified; K56.699 Other intestinal obstruction unspecified as to partial versus complete obstruction; K63.3 Ulcer of intestine; K63.89 Other specified diseases of intestine; K50.00 Crohn's disease of small intestine without complications | CPT/HCPCS: 45380; 88305 ==

== ENCOUNTER 2024-10-24 19:38 | Emergency (ER) | payer OTHER, SELFPAY ==
[2024-10-24 19:43] VITALS: BP 132/95
[2024-10-24 20:00] LABS: Hematocrit 40.4 % (39.0-52.0); Hemoglobin 13.8 g/dL (13.0-18.0); Mean Corp Hgb Conc. 34.2 g/dL (33.0-37.0); Mean Corpuscular Volume 83.3 fL (80.0-94.0); Nucleated Red Blood Cells % 0 % (-); Platelet Count 211 10^3/uL (130-400); Red Cell Dist. Width 12.1 % (11.5-14.5)
[2024-10-24 20:19] LABS: Blood Urea Nitrogen 12 mg/dl (9-20); Calcium 10.0 mg/dl (8.4-10.2); Carbon Dioxide 30 mmol/L (22-30); Chloride 103 mmol/L (98-107); Glucose 104 mg/dl (70-99); Potassium 4.5 mmol/L (3.5-5.1); Sodium 139 mmol/L (135-145); eGFR > 60.00
[2024-10-24 23:44] VITALS: BP 138/80; BMI 29.1
--- NOTE | 2024-10-24 23:46 | EDRN ---
Pt concerned he has an infected hemorrhoid because he did a sitz bath last night and today and noted pus in the bathtub. Pt denies abd pain, fever/chills/cough, n/v.
[2024-10-25 01:41] VITALS: BP 129/59
[2024-10-25] MEDS: KEFLEX 500 MG PO (02:29)
--- NOTE | 2024-10-25 21:58 | ED.GENMED ---
History of Present Illness
General
Chief Complaint: Bowel Problem
Source: patient
Exam Limitations: none
Time Seen by Provider: 10/24/24 23:35
Nursing documentation reviewed up to this point in time: agreed with
History of Present Illness
History of Present Illness:
patient to ED wt complaint of painful hemorrhoid. Symptoms started 1 week ago and continues to worsen. States he is seeing pus on toilet paper. Denies fever/chills. Using sitz bath with some improvement. Brought self to ED for eval.
Past History
Past History
ED Past Medical History: None
ED Past Surgical History: Other (Intra-abdominal abscess drainage)
Review of Systems
Review of Systems
Allergies reviewed?: Yes
All Other Systems: ROS reviewed and negative except as documented in HPI and ROS
Constitutional: Reports no symptoms
EENT: Reports no symptoms
Respiratory: Reports no symptoms
Cardiac: Reports no symptoms
ABD/GI: Reports no symptoms
: Reports other (complaint of painful hemorrhoid)
Musculoskeletal: Reports no symptoms
Skin: Reports no symptoms
Neurological: Reports no symptoms
Psychiatric: Reports no symptoms
Phy Exam
General Physical Exam
General Presentation: well appearing and mild distress
General age: appears stated age
General Skin: warm and dry
General Habitus: normal
General Mental: alert
Cardiovascular Exam
Cardiovascular Exam: regular rate/rhythm
Gastrointestinal Exam
Gastrointestinal Exam: normal bowel sounds, non tender, soft, no organomegaly, no pulsatile mass and non distended
Rectal Exam: normal external exam, normal sphincter tone and other (no hemorrhoids. Area of erythema swelling and pain at gluteal fold inferir to anus. Small amt of pus drainage)
Musculoskeletal Exam
Musculoskeletal Exam: full ROM and neuro vasc intact
Skin Exam
Skin Exam: normal color, warm/dry and no rash
Psychiatric Exam
Psychiatric Exam: normal mood/affect
Course
Orders/Labs/Results
Orders:
Orders
10/24/24 19:52
BMP [Basic Metabolic Panel] Urgent
Complete Blood Count/With Diff Urgent
10/25/24 00:03
CT Pelvis With Iv Contrast Urgent
Reason For Exam: Rectal pain
10/25/24 02:18
Cephalexin Monohydrate [Keflex] 500 mg PO NOW STA
10/25/24 02:29
Wound Culture [Wound/Abscess/Other Culture] Urgent
MANOHAR Source: [facility]
Specimen Description:
Date Specimen was Collected: 10/25/24
Time Specimen was Collected: 02:25
Abnormal Lab Results
10/24/24
19:52
Absolute Monos (auto) 1.3 H 10^3/uL
(0.1-0.6)
Monocytes % 15.3 H %
(1.7-9.3)
Glucose 104 H mg/dl
(70-99)
10/24/24 19:52
10/24/24 19:52
Vital Signs
Initial and Last Documented VS:
Initial Vital Signs
Temp Pulse Resp BP Pulse Ox
98.2 F 84 18 132/95 100
10/24/24 19:43 10/24/24 19:43 10/24/24 19:43 10/24/24 19:43 10/24/24 19:43
Last Documented Vital Signs
Temp Pulse Resp BP Pulse Ox
98.1 F 75 14 129/59 99
10/24/24 23:44 10/25/24 01:41 10/25/24 01:41 10/25/24 01:41 10/25/24 22:01
Procedures
Incision/Drainage/Joint Aspiration
left medial gluteal fold:
Anethesia: 1% Lidocaine with Epi
Preparation: cleaned with Betadine
Type of procedure: incise and drain
Nature of site: abscess
Description of abscess: greater than 3cm
How much fluid was obtained?: large amount
Fluid description: purulent
Treatment: left open for drainage and antibiotics started
*Radiology
Radiology exam reviewed: radiology read reviewed
*Pulse Oximetry
SaO2: 99
Oxygen Mode of Delivery: Room air
Patient hypoxic: no
*Critical Care Note
Total Time (30-74mins, 75-104mins- exclusive of procedures): Not Applicable
Update Note
Update Note:
Patient to ED with complaint of rectal pain. Exam reveals abscess inferior to anus. No rectal involvement. Case discussed with dr. Winslow who also evaluated this patient. Abscess infiltrated wtih lidocaine, small incision with #11 blade made and
large amt of pus expressed. Culture obtained. He was placed on keflex and will be discharged home. Given instructions on s/s to return to ED and he is agreeable to plan
ED Attending Note
-
Portions of this chart may have been created with voice recognition software.� Occasional wrong word or��sound alike� substitutions may have occurred due to the inherent limitations of voice recognition software.
Discharge Plan
Departure
Patient Disposition: Home (Routine Discharge)
Date of Disposition: 10/25/24
Time of Disposition: 02:19
Patient with high blood pressure during this ER visit?: No
Condition: Good
Covid-19: Not Applicable
Discharge Problem:
Peritoneal abscess
Instructions: Skin abscess, Abscess incision and drainage - ED (DC)
Prescriptions:
New
cephalexin 500 mg capsule
500 mg PO QID 10 Days Qty: 40 0RF
No Action
multivitamin Tablet
1 tab PO DAILY
cholecalciferol (vitamin D3) [Vitamin D3] 25 mcg (1,000 unit) Capsule
25 mcg PO DAILY
Referrals:
Jamal Pickens DO [Family Provider, Family Practice] - Follow up in 2-3 days
Activity Restrictions/Additional Instructions:
Return to the emergency department immediately for fever/chills, increasing pain, redness, swelling, or for any further concerns.
Interventions
Interventions:
*Risk Screen - Suicide Last Done: 10/24/24 19:43
*General Assessment Last Done: 10/24/24 23:44
*Neglect/Abuse Screening Last Done: 10/24/24 19:43
*ED- Fall Risk Assessment Last Done: 10/24/24 23:44
*Nursing Disposition Last Done: 10/25/24 02:37
IB-Iyhmgc-Yqwjtvjsod Assessment Last Done: 10/24/24 23:44
Discharge Date and Time
Discharge Date/Time: 10/25/24 02:37
Print Language: TUNISIAN
== END 2024-10-25 02:37 | disposition home or self-care (01) ==
LOC: EMR 19:38
PROVIDERS: Emergency Medicine; EMERGENCY PHYSICIAN Emergency Medicine; FAMILY PHYSICIAN Anesthesiology
DX: K65.1 Peritoneal abscess (principal)
CPT/HCPCS: 46050; 99283; 72193; 80048; 85025; 87070; 87205; Q9967

== ENCOUNTER 2024-10-27 22:32 | Emergency (ER) | payer OTHER, SELFPAY ==
[2024-10-27 22:38] VITALS: BP 141/83
[2024-10-27 22:59] LABS: Hematocrit 38.4 % (39.0-52.0); Hemoglobin 13.3 g/dL (13.0-18.0); Mean Corp Hgb Conc. 34.6 g/dL (33.0-37.0); Mean Corpuscular Volume 80.3 fL (80.0-94.0); Nucleated Red Blood Cells % 0 % (-); Platelet Count 231 10^3/uL (130-400); Red Cell Dist. Width 11.9 % (11.5-14.5)
[2024-10-27 23:20] LABS: ALT (SGPT) 19 U/L (0-50); AST (SGOT) 18 U/L (17-59); Albumin 4.5 g/dl (3.5-5.0); Alkaline Phosphatase 86 U/L (38-126); Blood Urea Nitrogen 9 mg/dl (9-20); Calcium 9.8 mg/dl (8.4-10.2); Carbon Dioxide 27 mmol/L (22-30); Chloride 99 mmol/L (98-107); Glucose 108 mg/dl (70-99); Potassium 3.7 mmol/L (3.5-5.1); Sodium 134 mmol/L (135-145); Total Protein 7.8 g/dl (6.3-8.2); eGFR > 60.00
[2024-10-28 02:32] VITALS: BP 122/77
[2024-10-28 02:48] VITALS: BP 122/77; BMI 28.3
[2024-10-28 03:00] VITALS: BP 117/68
--- NOTE | 2024-10-28 03:34 | ED.GENMED ---
History of Present Illness
<Gisell Hammond PA-C - Last Filed: 10/28/24 07:59>
General
Chief Complaint: Anal/Rectal Problem
Source: patient
Exam Limitations: none
Time Seen by Provider: 10/28/24 03:28
Nursing documentation reviewed up to this point in time: agreed with
History of Present Illness
History of Present Illness:
The patient is a 29-year-old male who presented with symptoms concerning for an abscess. The condition initially emerged on Sunday, and the patient had been seen previously where initial management included drainage and antibiotics. However, the
patient reports that since then, the area has shown an increase in redness, potential pus formation, and a spreading nature, contributing to the ongoing concern. The patient developed a fever with the temperature measuring 100.7�F, prompting further
medical evaluation. Despite treatment, the patient notes persistent pain and discomfort localized to the area. The patient indicates that a culture was taken during the prior visit, but results have not been communicated. I reviewed the results of
the culture, culture contaminated with skin cells. He denies any rectal bleeding.
Past History
<Gisell Hammond PA-C - Last Filed: 10/28/24 07:59>
Past History
ED Past Medical History: None
ED Past Surgical History: Other (Intra-abdominal abscess drainage)
Review of Systems
<Gisell Hammond PA-C - Last Filed: 10/28/24 07:59>
Review of Systems
All Other Systems: ROS reviewed and negative except as documented in HPI and ROS
Phy Exam
<Gisell Hammond PA-C - Last Filed: 10/28/24 07:59>
Physical Exam
Physical Exam:
General: Patient is well appearing and in no acute distress; non-toxic
Skin: Warm and dry, no rashes or lesions
Head: Normocephalic, atraumatic
Eyes: Sclera non-icteric. EOMs intact.
Cardiac: Regular rate and rhythm, no murmurs
Peripheral Vascular: No lower extremity swelling or edema
Pulm: Normal respiratory effort, no wheezes, rales, rhonchi
Abdomen: No abdominal tenderness to palpation, no rectal bleeding, no rectal lesions, left gluteal swelling and induration noted with some drainage noted medially, no evidence of perirectal abscess
Neuro: CN II-XII intact, no focal neurologic deficits.
Psychiatric: Appropriate mood and affect.
Course
<Gisell Hammond PA-C - Last Filed: 10/28/24 07:59>
Orders/Labs/Results
Orders:
Orders
10/27/24 22:43
CMP [Comprehensive Metabolic Panel] Urgent
Complete Blood Count/With Diff Urgent
10/27/24 22:48
Lactic Acid Urgent
10/28/24 04:32
Vancomycin [Vancocin] 2,000 mg 0.9% Sodium Chloride 500 ml [Nss] 500 ml IV NOW
Abnormal Lab Results
10/27/24 10/27/24
22:43 22:48
WBC 13.5 H 10^3/uL
(4.8-10.8)
Hct 38.4 L %
(39.0-52.0)
Absolute Neuts (auto) 10.7 H 10^3/uL
(1.4-6.5)
Absolute Monos (auto) 1.2 H 10^3/uL
(0.1-0.6)
Neutrophils % 78.8 H %
(42.2-75.2)
Lymphocytes % 11.2 L %
(20.5-51.1)
Sodium 134 L mmol/L
(135-145)
Glucose 108 H mg/dl
(70-99)
Lactic Acid < 0.5 L mmol/L
(0.7-2.0)
Total Bilirubin 2.0 H mg/dl
(0.2-1.3)
10/27/24 22:43
10/27/24 22:43
Vital Signs
Initial and Last Documented VS:
Initial Vital Signs
Temp Pulse Resp BP Pulse Ox
99.3 F 117 16 141/83 100
10/27/24 22:38 10/27/24 22:38 10/27/24 22:38 10/27/24 22:38 10/27/24 22:38
Last Documented Vital Signs
Temp Pulse Resp BP Pulse Ox
97.7 F 100 17 102/65 98
10/28/24 02:48 10/28/24 02:48 10/28/24 02:48 10/28/24 07:01 10/28/24 03:42
<Sonya Parikh, DO - Last Filed: 10/28/24 05:53>
Orders/Labs/Results
Orders:
Orders
10/27/24 22:43
CMP [Comprehensive Metabolic Panel] Urgent
Complete Blood Count/With Diff Urgent
10/27/24 22:48
Lactic Acid Urgent
10/28/24 04:32
Vancomycin [Vancocin] 2,000 mg 0.9% Sodium Chloride 500 ml [Nss] 500 ml IV NOW
Abnormal Lab Results
10/27/24 10/27/24
22:43 22:48
WBC 13.5 H 10^3/uL
(4.8-10.8)
Hct 38.4 L %
(39.0-52.0)
Absolute Neuts (auto) 10.7 H 10^3/uL
(1.4-6.5)
Absolute Monos (auto) 1.2 H 10^3/uL
(0.1-0.6)
Neutrophils % 78.8 H %
(42.2-75.2)
Lymphocytes % 11.2 L %
(20.5-51.1)
Sodium 134 L mmol/L
(135-145)
Glucose 108 H mg/dl
(70-99)
Lactic Acid < 0.5 L mmol/L
(0.7-2.0)
Total Bilirubin 2.0 H mg/dl
(0.2-1.3)
10/27/24 22:43
10/27/24 22:43
Vital Signs
Initial and Last Documented VS:
Initial Vital Signs
Temp Pulse Resp BP Pulse Ox
99.3 F 117 16 141/83 100
10/27/24 22:38 10/27/24 22:38 10/27/24 22:38 10/27/24 22:38 10/27/24 22:38
Last Documented Vital Signs
Temp Pulse Resp BP Pulse Ox
97.7 F 100 17 102/65 98
10/28/24 02:48 10/28/24 02:48 10/28/24 02:48 10/28/24 07:01 10/28/24 03:42
Terralt;Gisell Hammond PA-C - Last Filed: 10/28/24 07:59>
MDM/Problems Addressed
Differential Diagnosis Includes:
ddx include perirectal cellulitis, abscess, gluteal cellulitis, etc.
MDM/Problems Addressed:
The patient is a 29-year-old male who presented with symptoms concerning for an abscess. The condition initially emerged on Sunday, and the patient had been seen previously where initial management included drainage and antibiotics. However, the
patient reports that since then, the area has shown an increase in redness, potential pus formation, and a spreading nature, contributing to the ongoing concern. On physical exam, she has increasing redness and pain representing a gluteal
cellulitis with palpable fluctuance with some active drainage however no drainable collection. Considering worsening despite Keflex, will give dose of vancomycin here and discharge with the addition of doxycycline. Patient did not have a fever
here. Mild leukocytosis noted. Discussed return precautions discussed monitoring redness and worsening symptoms. Patient stable for discharge.
Chronic conditions affecting care:
n/a
<Gisell Hammond PA-C - Last Filed: 10/28/24 07:59>
*Pulse Oximetry
SaO2: 99
Oxygen Mode of Delivery: Room air
Patient hypoxic: no
*Critical Care Note
Total Time (30-74mins, 75-104mins- exclusive of procedures): Not Applicable
Data Reviewed
Review of Other/Old Records Reveals: Records
ED Attending Note
<Gisell Hammond PA-C - Last Filed: 10/28/24 07:59>
-
Portions of this chart may have been created with voice recognition software.� Occasional wrong word or��sound alike� substitutions may have occurred due to the inherent limitations of voice recognition software.
<Sonya Parikh DO - Last Filed: 10/28/24 05:53>
ED Attending Note
Patient seen and examined by attending physician: Yes
I performed the substantive portion of visit, reviewed & personally made and approve the management plan that is documented in note by myself or LÓPEZ.: Yes
ED Attending Note:
29-year-old gentleman with no significant past medical history initially presented to this ED October 24 with left gluteal fold skin abscess. CT abdomen pelvis revealed a small abscess in the medial left gluteal fold measuring 3.8 cm x 2 cm x 2.4
cm. There was no perirectal collection. Slightly prominent left inguinal lymph nodes, likely reactive. Abscess was incised and drained and he was started on Keflex.
He returns with complaints of increased pain and increased swelling and induration at area. He does continue with scant drainage. He has been doing sitz bath's and local warm compresses.
Low-grade fever noted tonight of 99 �F.
Exam remarkable for moderate focal erythema approximately 8 cm x 4 cm. With the central firm area approximately 3 cm x 2 cm. At this firm area there is a small area with draining purulent material.
No evidence of perianal nor perirectal involvement.
Noted to have borderline low-grade fever of 99 �F.
Labs reveal mildly elevated white blood cell count of 13, has trended up.
Significant concern for potential MRSA and will broaden antibiotics to include doxycycline and will give an IV dose of vancomycin.
It is reassuring that abscess is draining and there is still an area of firmness that is not, at this point amenable to repeat incision and drainage.
Recommend continuing Keflex, will add doxycycline, continue local warm compresses/sitz bath's.
Strict return precautions discussed.
Discharge Plan
Departure
Patient Disposition: Home (Routine Discharge)
Date of Disposition: 10/28/24
Time of Disposition: 07:14
Patient with high blood pressure during this ER visit?: Yes
Condition: Good
Discharge Problem:
Cellulitis, gluteal, left
Instructions: Anal Abscess and Fistula, Adult (DC), Cellulitis (skin infection) in adults - ED (DC), BLOOD PRESSURE
Prescriptions:
New
doxycycline hyclate 100 mg capsule
100 mg PO BID 7 Days Qty: 14 0RF
No Action
multivitamin Tablet
1 tab PO DAILY
cholecalciferol (vitamin D3) [Vitamin D3] 25 mcg (1,000 unit) Capsule
25 mcg PO DAILY
cephalexin 500 mg capsule
500 mg PO QID 10 Days Qty: 40 0RF
Referrals:
Jamal Pickens DO [Family Provider, Family Practice]
Activity Restrictions/Additional Instructions:
You received dose of IV vancomycin today. Please finish course of Keflex. Doxycycline has been sent to your pharmacy. Please take 1 tablet twice daily for 7 days.
Please continue to monitor your symptoms. Should you see that the redness does not improve after 24 to 48-hour period, please return to emergency department. PLEASE ALSO RETURN SHOULD YOU DEVELOP FEVERS OR CHILLS, NAUSEA OR VOMITING, INCREASING
PAIN OR SWELLING, OR ANY OTHER SIGNS OR SYMPTOMS WORRISOME TO YOU.
Please follow-up with your primary care provider.
Interventions
Interventions:
*Risk Screen - Suicide Last Done: 10/27/24 22:38
*General Assessment Last Done: 10/28/24 05:05
*Neglect/Abuse Screening Last Done: 10/28/24 05:08
*ED- Fall Risk Assessment Last Done: 10/28/24 05:05
*ED COVID-19 Vaccine History Last Done: 10/28/24 05:05
*Nursing Disposition Last Done: 10/28/24 07:52
ED-Skin Assessment Last Done: 10/28/24 02:50
Discharge Date and Time
Print Language: TURKISH
[2024-10-28] MEDS: VANCOCIN 540 MG IV (05:01)
[2024-10-28 05:03] VITALS: BP 101/68
[2024-10-28 06:00] VITALS: BP 105/57
[2024-10-28 07:01] VITALS: BP 102/65
== END 2024-10-28 07:40 | disposition home or self-care (01) ==
LOC: EMR 22:32
PROVIDERS: Emergency Medicine; EMERGENCY PHYSICIAN Emergency Medicine; FAMILY PHYSICIAN Anesthesiology
DX: L03.317 Cellulitis of buttock (principal)
CPT/HCPCS: 99283; 96374; 80053; 83605; 85025